=== PATIENT | female | born 1940 | race Caucasian/White ===

== ENCOUNTER 2020-04-18 15:37 | Inpatient (IN) ==
[2020-04-18] MEDS ORDERED: Naloxone 0.4 MG/ML INJ IVP PRN (20:08)
[2020-04-19] MEDS ORDERED: Gadolinium Contrast Agent (WT Based) IV PRN (00:35)
[2020-04-19 02:43] LABS: Basophils # 0.1 K/mcL (0.0-0.2); Basophils % 0.7 %; Eosinophils # 0.1 K/mcL (0.0-0.6); Eosinophils % 0.6 %; Hemoglobin 13.8 g/dL (11.5-15.4); Immature Granulocytes % 0.5 % (0-4); Lymphocytes # 2.2 K/mcL (0.6-4.6); Lymphocytes % 26.1 %; Mean Corpuscular HGB Conc 32.9 g/dL (31.6-35.5); Mean Corpuscular Hemoglobin 31.2 pg (28.0-33.3); Mean Platelet Volume 12.6 fL (9.4-12.4); Monocytes # 0.7 K/mcL (0.0-1.3); Neutrophils # 5.5 K/mcL (1.6-8.9); Platelet Count 184 K/mcL (140-400); Red Blood Count 4.42 M/mcL (3.82-4.97); Red Cell Distribution Width 12.4 % (11.5-14.5); Segmented Neutrophils % 64.1 %; White Blood Count 8.5 K/mcL (4.3-11.1)
[2020-04-19 02:50] LABS: Alanine Aminotransferase 13 Units/L (7-52); Albumin 3.7 g/dL (3.5-5.7); Albumin/Globulin Ratio 1.5 (1.1-2.2); Alkaline Phosphatase 74 Units/L (34-104); Aspartate Amino Transferase 15 Units/L (13-39); BUN/Creatinine Ratio 9 (6-26); Bilirubin,Total 0.8 mg/dL (0.3-1.0); Blood Urea Nitrogen 7 mg/dL (8-23); Calcium 9.4 mg/dL (8.6-10.3); Carbon Dioxide 24 mEq/L (23-29); Chloride 105 mEq/L (98-107); Creatine Kinase 57 Units/L (30-223); Globulin 2.5 g/dL (2.4-3.5); Glucose 87 mg/dL (70-105); Osmolality,Calculated 287 (280-300); Potassium 3.3 mEq/L (3.5-5.1); Sodium 140 mEq/L (136-145); Total Protein 6.2 g/dL (6.4-8.9); eGFR For African Americans > 60 (> 60); eGFR For Non-African Americans > 60 (> 60)
[2020-04-19 03:02] LABS: Prolactin 15.62 ng/mL (3.80-23.20)
[2020-04-19 03:44] LABS: Magnesium 1.5 mg/dL (1.6-2.6)
[2020-04-19] MEDS: *HR* Heparin 5,000 UNIT/ML VIAL SQ SCH ×2 (05:08→17:23)
[2020-04-19] MEDS ORDERED: Magnesium Sulfate 1 GM/102 ML PIGGYBACK IVPB ONE (07:57)
[2020-04-19] MEDS ORDERED: Spironolactone 25 MG TABLET PO SCH (09:00)
[2020-04-19] MEDS: DilTIAZem CD (24hr) 120 MG CAP.ER.24H PO SCH ×2 (09:49→14:44)
[2020-04-19] MEDS ORDERED: Hydrocortisone Rectal 2.5% CRM 28 GM TUBE RC PRN (12:22)
[2020-04-19] MEDS ORDERED: Potassium Chloride Elixir 20 MEQ/15 ML UDC PO ONE (12:28)
[2020-04-19] MEDS ORDERED: CLARITHROMYCIN 125 MG/5 ML PO SCH ×2 (12:30)
[2020-04-19] MEDS: Amoxicillin Susp 250 MG/5 ML UDC PO SCH ×2 (14:44→23:24)
[2020-04-19] MEDS: CLARITHROMYCIN 125 MG/5 ML PO SCH ×2 (14:44→23:23)
[2020-04-19] MEDS: Rivastigmine Patch 9.5 MG PATCH.TD24 TD SCH (17:23)
[2020-04-19 18:03] LABS: Magnesium 1.8 mg/dL (1.6-2.6); Potassium 3.5 mEq/L (3.5-5.1)
[2020-04-19] MEDS: levETIRAcetam 250 MG TABLET PO SCH (18:10)
[2020-04-20] MEDS: *HR* Heparin 5,000 UNIT/ML VIAL SQ SCH ×2 (05:18→16:42)
[2020-04-20] MEDS: levETIRAcetam 250 MG TABLET PO SCH (05:26)
[2020-04-20] MEDS: DilTIAZem CD (24hr) 120 MG CAP.ER.24H PO SCH (08:40)
[2020-04-20] MEDS: Rivastigmine Patch 9.5 MG PATCH.TD24 TD SCH (08:41)
[2020-04-20] MEDS ORDERED: Rivastigmine Patch 9.5 MG PATCH.TD24 TD SCH (09:00)
[2020-04-20 09:18] LABS: Hematocrit 42.4 % (35.3-44.9); Mean Corpuscular Hemoglobin 30.8 pg (28.0-33.3); Mean Corpuscular Volume 93.2 fL (83.0-100.0); Mean Platelet Volume 11.4 fL (9.4-12.4); Platelet Count 212 K/mcL (140-400); Red Blood Count 4.55 M/mcL (3.82-4.97); Red Cell Distribution Width 12.1 % (11.5-14.5); White Blood Count 8.7 K/mcL (4.3-11.1)
[2020-04-20 09:33] LABS: BUN/Creatinine Ratio 10 (6-26); Blood Urea Nitrogen 7 mg/dL (8-23); Calcium 9.5 mg/dL (8.6-10.3); Carbon Dioxide 26 mEq/L (23-29); Chloride 104 mEq/L (98-107); Glucose 114 mg/dL (70-105); Magnesium 1.7 mg/dL (1.6-2.6); Osmolality,Calculated 285 (280-300); Potassium 3.5 mEq/L (3.5-5.1); Sodium 138 mEq/L (136-145); eGFR For African Americans > 60 (> 60); eGFR For Non-African Americans > 60 (> 60)
[2020-04-20] MEDS: CLARITHROMYCIN 125 MG/5 ML PO SCH ×2 (12:12→23:32)
[2020-04-20] MEDS: Amoxicillin Susp 250 MG/5 ML UDC PO SCH ×2 (12:12→23:33)
[2020-04-20] MEDS: levETIRAcetam 500 MG/5 ML UDC PO SCH (18:05)
[2020-04-21 02:50] LABS: Hemoglobin 12.8 g/dL (11.5-15.4); Mean Corpuscular HGB Conc 32.8 g/dL (31.6-35.5); Mean Corpuscular Hemoglobin 31.1 pg (28.0-33.3); Mean Corpuscular Volume 94.7 fL (83.0-100.0); Mean Platelet Volume 11.4 fL (9.4-12.4); Platelet Count 219 K/mcL (140-400); Red Blood Count 4.12 M/mcL (3.82-4.97); Red Cell Distribution Width 12.1 % (11.5-14.5); White Blood Count 7.7 K/mcL (4.3-11.1)
[2020-04-21] MEDS: *HR* Heparin 5,000 UNIT/ML VIAL SQ SCH ×2 (06:11→17:41)
[2020-04-21] MEDS: levETIRAcetam 500 MG/5 ML UDC PO SCH ×2 (06:27→18:00)
[2020-04-21] MEDS: Rivastigmine Patch 9.5 MG PATCH.TD24 TD SCH (10:44)
[2020-04-21] MEDS: CLARITHROMYCIN 125 MG/5 ML PO SCH ×2 (10:44→23:36)
[2020-04-21] MEDS: Amoxicillin Susp 250 MG/5 ML UDC PO SCH ×2 (10:44→23:36)
[2020-04-21] MEDS: DilTIAZem CD (24hr) 120 MG CAP.ER.24H PO SCH (10:45)
[2020-04-22] MEDS: levETIRAcetam 500 MG/5 ML UDC PO SCH (04:34)
[2020-04-22] MEDS: *HR* Heparin 5,000 UNIT/ML VIAL SQ SCH ×2 (04:34→17:37)
[2020-04-22 06:17] LABS: Hematocrit 44.9 % (35.3-44.9); Mean Corpuscular HGB Conc 33.4 g/dL (31.6-35.5); Mean Corpuscular Hemoglobin 31.1 pg (28.0-33.3); Mean Corpuscular Volume 93.2 fL (83.0-100.0); Mean Platelet Volume 11.6 fL (9.4-12.4); Platelet Count 234 K/mcL (140-400); Red Blood Count 4.82 M/mcL (3.82-4.97); Red Cell Distribution Width 12.1 % (11.5-14.5); White Blood Count 7.6 K/mcL (4.3-11.1)
[2020-04-22 06:25] LABS: BUN/Creatinine Ratio 14 (6-26); Blood Urea Nitrogen 10 mg/dL (8-23); Calcium 9.4 mg/dL (8.6-10.3); Carbon Dioxide 26 mEq/L (23-29); Chloride 100 mEq/L (98-107); Glucose 105 mg/dL (70-105); Magnesium 1.5 mg/dL (1.6-2.6); Osmolality,Calculated 283 (280-300); Potassium 3.3 mEq/L (3.5-5.1); Sodium 137 mEq/L (136-145); eGFR For African Americans > 60 (> 60); eGFR For Non-African Americans > 60 (> 60)
[2020-04-22] MEDS ORDERED: Potassium Chloride Elixir 20 MEQ/15 ML UDC PO ONE (07:35)
[2020-04-22] MEDS ORDERED: Magnesium Sulfate 1 GM/102 ML PIGGYBACK IVPB ONE (07:37)
[2020-04-22] MEDS: Rivastigmine Patch 9.5 MG PATCH.TD24 TD SCH (08:59)
[2020-04-22] MEDS: DilTIAZem CD (24hr) 120 MG CAP.ER.24H PO SCH (08:59)
[2020-04-22] MEDS: Lactobacillus 1 EACH CAP.SPRINK PO SCH (08:59)
[2020-04-22] MEDS: CLARITHROMYCIN 125 MG/5 ML PO SCH (13:29)
[2020-04-22] MEDS: Amoxicillin Susp 250 MG/5 ML UDC PO SCH (13:29)
[2020-04-22 16:33] LABS: Potassium 3.3 mEq/L (3.5-5.1)
[2020-04-22 16:34] LABS: BUN/Creatinine Ratio 19 (6-26); Blood Urea Nitrogen 13 mg/dL (8-23); eGFR For African Americans > 60 (> 60); eGFR For Non-African Americans > 60 (> 60)
[2020-04-22] MEDS ORDERED: Potassium Chloride 20 MEQ, Lidocaine 1% 2 ML in 0.9 % Sodium Chloride 250 ML IVPB ONE (16:49)
[2020-04-23] MEDS: CLARITHROMYCIN 125 MG/5 ML PO SCH ×2 (01:03→14:06)
[2020-04-23] MEDS: Amoxicillin Susp 250 MG/5 ML UDC PO SCH ×2 (01:03→14:07)
[2020-04-23 05:08] LABS: BUN/Creatinine Ratio 19 (6-26); Blood Urea Nitrogen 13 mg/dL (8-23); Calcium 9.5 mg/dL (8.6-10.3); Carbon Dioxide 24 mEq/L (23-29); Chloride 103 mEq/L (98-107); Glucose 115 mg/dL (70-105); Magnesium 1.7 mg/dL (1.6-2.6); Osmolality,Calculated 281 (280-300); Potassium 4.2 mEq/L (3.5-5.1); Sodium 135 mEq/L (136-145); eGFR For African Americans > 60 (> 60); eGFR For Non-African Americans > 60 (> 60)
[2020-04-23] MEDS: *HR* Heparin 5,000 UNIT/ML VIAL SQ SCH ×2 (06:30→18:16)
[2020-04-23] MEDS: Lactobacillus 1 EACH CAP.SPRINK PO SCH (09:03)
[2020-04-23 10:15] LABS: Hematocrit 41.1 % (35.3-44.9); Hemoglobin 14.1 g/dL (11.5-15.4); Mean Corpuscular HGB Conc 34.3 g/dL (31.6-35.5); Mean Corpuscular Hemoglobin 31.8 pg (28.0-33.3); Mean Corpuscular Volume 92.6 fL (83.0-100.0); Mean Platelet Volume 11.3 fL (9.4-12.4); Platelet Count 223 K/mcL (140-400); Red Blood Count 4.44 M/mcL (3.82-4.97); White Blood Count 7.5 K/mcL (4.3-11.1)
[2020-04-23] MEDS: DilTIAZem CD (24hr) 120 MG CAP.ER.24H PO SCH (10:46)
[2020-04-23] MEDS ORDERED: 0.9 % Sodium Chloride 1,000 ML IVC SCH ×2 (17:30)
[2020-04-24] MEDS: CLARITHROMYCIN 125 MG/5 ML PO SCH (00:26)
[2020-04-24] MEDS: Amoxicillin Susp 250 MG/5 ML UDC PO SCH ×2 (00:26→14:20)
[2020-04-24 02:07] LABS: BUN/Creatinine Ratio 17 (6-26); Blood Urea Nitrogen 10 mg/dL (8-23); Calcium 8.8 mg/dL (8.6-10.3); Carbon Dioxide 22 mEq/L (23-29); Chloride 104 mEq/L (98-107); Glucose 126 mg/dL (70-105); Osmolality,Calculated 283 (280-300); Sodium 136 mEq/L (136-145); eGFR For African Americans > 60 (> 60); eGFR For Non-African Americans > 60 (> 60)
[2020-04-24 02:10] LABS: Hematocrit 40.1 % (35.3-44.9); Hemoglobin 13.1 g/dL (11.5-15.4); Mean Corpuscular HGB Conc 32.7 g/dL (31.6-35.5); Mean Corpuscular Hemoglobin 30.5 pg (28.0-33.3); Mean Corpuscular Volume 93.5 fL (83.0-100.0); Mean Platelet Volume 12.5 fL (9.4-12.4); Platelet Count 151 K/mcL (140-400); Red Blood Count 4.29 M/mcL (3.82-4.97); White Blood Count 7.8 K/mcL (4.3-11.1)
[2020-04-24] MEDS: *HR* Heparin 5,000 UNIT/ML VIAL SQ SCH (05:32)
[2020-04-24 06:47] VITALS: BP 124/75
[2020-04-24] MEDS: Lactobacillus 1 EACH CAP.SPRINK PO SCH (09:49)
[2020-04-24] MEDS: DilTIAZem CD (24hr) 120 MG CAP.ER.24H PO SCH (10:06)
[2020-04-24] MEDS ORDERED: FLU Vac QV 20-21 (6Month+)/PF 0.5 ML SYRINGE IM ONE (13:45)
== END 2020-04-24 14:55 | disposition home health service (06) | DRG 57 ==
LOC: 3BNU
PROVIDERS: ADMIT Internal Medicine; ATTEND Internal Medicine